=== PATIENT | male | born 2000 | race Caucasian/White ===

== ENCOUNTER 2025-02-18 23:44 | Emergency (ER) | payer BC, SELFPAY ==
[2025-02-18 23:45] VITALS: BP 118/65
[2025-02-19 00:08] LABS: % Basophils 0.5 % (0-2); % Eosinophils 2.4 % (0-6); % Immature Granulocytes 0.4 % (0-0.5); % Lymphocytes 19.7 % (20.5-51.1); % Monocytes 7.3 % (1.7-9.3); % Neutrophils 69.7 % (42.2-75.2); Absolute Basophils 0.1 10^3/uL (0-0.2); Absolute Eosinophils 0.3 10^3/uL (0-0.7); Absolute Monocytes 0.8 10^3/uL (0.1-0.6); Absolute Neutrophils 7.2 10^3/uL (1.4-6.5); Hematocrit 44.8 % (39.0-52.0); Hemoglobin 15.8 g/dL (13.0-18.0); Mean Corp Hgb Conc. 35.3 g/dL (33.0-37.0); Mean Corpuscular Hgb 29.9 pg (27.0-31.0); Mean Corpuscular Volume 84.8 fL (80.0-94.0); Mean Platelet Volume 10.1 fL (7.4-10.4); Nucleated Red Blood Cells % 0 % (-); Platelet Count 196 10^3/uL (130-400); Red Blood Cell Count 5.28 10^6/uL (4.70-6.10); Red Cell Dist. Width 12.2 % (11.5-14.5); White Blood Cell Count 10.3 10^3/uL (4.8-10.8)
[2025-02-19 00:20] LABS: ALT (SGPT) 18 U/L (0-50); AST (SGOT) 28 U/L (17-59); Albumin 5.3 g/dl (3.5-5.0); Alkaline Phosphatase 58 U/L (38-126); Blood Urea Nitrogen 20 mg/dl (9-20); Calcium 9.5 mg/dl (8.4-10.2); Carbon Dioxide 24 mmol/L (22-30); Chloride 105 mmol/L (98-107); Glucose 118 mg/dl (70-99); Potassium 4.3 mmol/L (3.5-5.1); Sodium 139 mmol/L (135-145); Total Bilirubin 1.1 mg/dl (0.2-1.3); Total Protein 8.2 g/dl (6.3-8.2); eGFR > 60.00
[2025-02-19 02:39] VITALS: BMI 23.8
--- NOTE | 2025-02-19 02:42 | EDRN ---
Pt says he had a basketball game around 2100 and 1 hour after, he started having a fast HR, sob and cp. Pt drank fluids. Over the past 1.5 months pt has had palpitations, sob, and periods of fast HR. Pt went to his pcp for these symptoms, had an
EKG done and was told everything was normal. Last night's symptoms were more intense than usual. Symptoms last night lasted approximately 30 minutes. Pt stopped drinking caffeine couple weeks ago and says he thinks his symptoms improved. Pt
drank a coffee yesterday morning for the first time in weeks. Pt feels 'fine' now and says he occasionally has 5 seconds of cp. No fever/chills/cough, abd pain, n/v/d/c, urinary symptoms.
[2025-02-19 02:48] VITALS: BP 108/61
[2025-02-19 03:00] VITALS: BP 105/61
[2025-02-19 04:00] VITALS: BP 101/56
[2025-02-19 05:00] VITALS: BP 101/60
--- NOTE | 2025-02-19 05:35 | ED.GENMED ---
History of Present Illness
General
Chief Complaint: Heart Rate Problem
Source: patient
Exam Limitations: none
Time Seen by Provider: 02/19/25 05:16
Nursing documentation reviewed up to this point in time: agreed with
History of Present Illness
History of Present Illness:
Pleasant 24-year-old male presents to the emergency department with feeling of tachycardia and increased palpitations. Patient states that he did have intermittent chest pain while playing basketball today. Patient states that the chest pain
resolved but the palpitations persisted. Patient states that he abstain from coffee for the last 2 weeks and this morning he had his first cup of coffee. He he does report that he does Zyn which is a smokeless tobacco. Patient denies any forms of
illicit drug or medical use. Patient is accompanied by mom.
Past History
Past History
ED Past Medical History: None
ED Past Surgical History: None
Social History
Tobacco: Non-smoker
Alcohol: Occasional
Personal: Single
Employment: Student
Review of Systems
Review of Systems
Allergies reviewed?: Yes
All Other Systems: ROS reviewed and negative except as documented in HPI and ROS
Constitutional: Reports no symptoms
EENT: Reports no symptoms
Respiratory: Reports no symptoms
Cardiac: Reports chest pain and palpitations
ABD/GI: Reports no symptoms
: Reports no symptoms
Musculoskeletal: Reports no symptoms
Skin: Reports no symptoms
Neurological: Reports no symptoms
Endocrine: Reports no symptoms
Hematologic/Lymphatic: Reports no symptoms
Psychiatric: Reports anxiety
Phy Exam
General Physical Exam
General Presentation: well appearing and no apparent distress
General Skin: warm and dry
General Habitus: normal
General Mental: alert
General Hydration: appears well hydrated
ENT Exam
ENT Exam: EOMI, pharynx normal, neck supple and normocephalic
Eye Exam
Eye Exam: PERRL, cornea clear and conjunctiva normal
Cardiovascular Exam
Cardiovascular Exam: regular rate/rhythm, no edema, no murmur and normal peripheral pulses
Pulmonary Exam
Pulmonary Exam: lungs clear, no respiratory distress, no rales, no crackles, no rhonchi, no stridor, no wheezing and no cough
Gastrointestinal Exam
Gastrointestinal Exam: normal bowel sounds, non tender, soft, no organomegaly, no pulsatile mass and non distended
Neurological Exam
Neurological Exam: alert and oriented x3
Musculoskeletal Exam
Musculoskeletal Exam: full ROM and no edema
Skin Exam
Skin Exam: normal color, warm/dry, no rash and no petechia
Psychiatric Exam
Psychiatric Exam: normal mood/affect
Course
Orders/Labs/Results
Orders:
Orders
02/18/25 23:49
EKG- Treatment ONCE
02/18/25 23:59
Complete Blood Count/With Diff Urgent
Comprehensive Metabolic Panel Urgent
02/19/25
Electrocardiogram (*1) Stat
Reason for Study: Shortness of Breath
Abnormal Lab Results
02/18/25
23:59
Absolute Neuts (auto) 7.2 H 10^3/uL
(1.4-6.5)
Absolute Monos (auto) 0.8 H 10^3/uL
(0.1-0.6)
Lymphocytes % 19.7 L %
(20.5-51.1)
Glucose 118 H mg/dl
(70-99)
Albumin 5.3 H g/dl
(3.5-5.0)
02/18/25 23:59
02/18/25 23:59
Vital Signs
Initial and Last Documented VS:
Initial Vital Signs
Temp Pulse Resp BP Pulse Ox
97.7 F 88 18 118/65 100
02/18/25 23:45 02/18/25 23:45 02/18/25 23:45 02/18/25 23:45 02/18/25 23:45
Last Documented Vital Signs
Temp Pulse Resp BP Pulse Ox
97.7 F 45 20 101/56 100
02/18/25 23:45 02/19/25 04:00 02/19/25 04:00 02/19/25 04:00 02/18/25 23:45
*Critical Care Note
Total Time (30-74mins, 75-104mins- exclusive of procedures): Not Applicable
ED Attending Note
-
Portions of this chart may have been created with voice recognition software.� Occasional wrong word or��sound alike� substitutions may have occurred due to the inherent limitations of voice recognition software.
Discharge Plan
Departure
Patient Disposition: Home (Routine Discharge)
Date of Disposition: 02/19/25
Time of Disposition: 05:38
Patient with high blood pressure during this ER visit?: Yes
Condition: Fair
Discharge Problem:
Palpitations, Chest pain
Instructions: Palpitations (DC)
Prescriptions:
No Action
No Current Medications
0
Referrals:
Pino Sharma DO [Family Provider] -
Activity Restrictions/Additional Instructions:
Please continue to take your home meds, as discussed. Follow-up with your family doctor. Keep your cardiology appointment show at
Thank You for choosing [facility].
It was a pleasure meeting you and taking part in your care. We hope for your continued healing and wellness.
Please read discharge instructions in their entirety. However, they are for general education and may not describe your exact diagnosis at discharge. Information on your ER visit and medical conditions were discussed with you along with appropriate
follow up information...
If indicated, please take your medications as instructed and indicated on discharge paperwork.
Please schedule a follow up appointment as directed. Call to schedule an appointment
Please return to the emergency department with ANY change in, persisting, or worsening of symptoms. If any of your symptoms do not improve, or persist, or become more severe within 6-12 hours, please return to the emergency department for further
care.
Please return to the emergency department if you develop a headache, neck pain/stiffness, fever greater than 100.4F, chest pain, shortness of breath, persistent nausea, vomiting, slurred speech, difficulty walking, numbness/tingling, weakness, signs
of infection or any other symptoms that are worrisome to you.
If you have any questions or concerns please do not hesitate to call the Hospital at or E-mail me directly at [email or web address]
Interventions
Interventions:
*Risk Screen - Suicide Last Done: 02/18/25 23:45
*General Assessment Last Done: 02/19/25 02:39
*Neglect/Abuse Screening Last Done: 02/18/25 23:45
*ED- Fall Risk Assessment Last Done: 02/19/25 02:55
ED- Cardiac Assessment Last Done: 02/19/25 02:55
ED- Pulmonary Assessment Last Done: 02/19/25 02:55
Discharge Date and Time
Print Language: COLOMBIAN
[2025-02-19 06:00] VITALS: BP 98/59
== END 2025-02-19 06:11 | disposition home or self-care (01) ==
LOC: EMR 23:44
PROVIDERS: EMERGENCY PHYSICIAN Student in an Organized Health Care Education/Training Program; FAMILY PHYSICIAN Family Medicine
DX: R00.2 Palpitations (principal); R07.89 Other chest pain
CPT/HCPCS: 99283; 80053; 85025; 93005

== ENCOUNTER → 2025-03-22 08:34 | Outpatient (REF) | payer BC, SELFPAY | LOC: RCS 08:34 | PROVIDERS: ATTENDING PHYSICIAN Family Medicine | DX: R00.2 Palpitations (principal) | CPT/HCPCS: 93225; 93226 ==

== ENCOUNTER → 2025-04-19 12:54 | Outpatient (REF) | payer BC, SELFPAY | LOC: RCS 12:54 | PROVIDERS: ATTENDING PHYSICIAN Internal Medicine Cardiovascular Disease; FAMILY PHYSICIAN Family Medicine | DX: R07.9 Chest pain, unspecified (principal) | CPT/HCPCS: 93017; 93350 ==